=== PATIENT | female | born 1985 | race Caucasian/White ===

== ENCOUNTER → 2021-04-08 | Outpatient (CLI) | payer MEDICAID ==
[2018-11-16 14:53] VITALS: BP 126/84
[~2021-04-08] MED LIST: CITA10TA5 PO; FENT100D IV; HYDR4TAB PO; LORA0.5T PO; ONDA4TAB7 IVP; OXYC5CAP PO; PROC10VI20 IJ
--- NOTE | 2021-04-09 12:24 | KCIC ---
MRI of the cervical spine without contrast 04/08/2021 CLINICAL HISTORY: Chronic neck pain. TECHNIQUE: Unenhanced T1-weighted, T2-weighted and inversion recovery sagittal and gradient echo and T2-weighted axial images of the cervical spine were obtained. FINDINGS: Incomplete segmentation of the C2 and C3 vertebrae is seen. A hypoplastic disc is seen ante riorly at C2-3. Very mild lateral curvature of the cervical spine is seen convex to the left. There i s straightening of the normal cervical lordosis. Degenerative signal changes are seen involving all o f the disks of the cervical spine. The marrow signal of the visualized bony structures is within norm al limits. The cervical spinal cord is normal morphology, position, and signal characteristics. On the axial images throughout the cervical disc spaces, mild degenerative changes are seen consistin g of minimal to mild generalized disc bulges and mild degenerative changes involving the uncovertebra l and facet joints. These findings do not result in significant central spinal canal or neural forami nal stenosis at any level. No focal disc herniation is seen. IMPRESSION: Mild degenerative changes are seen involving the cervical spine as discussed above. These findings do not result in significant central spinal canal or neural foraminal stenosis. Electronically signed by: Franklin Echavarria MD (04/09/2021 12:22 PM) [id number]
--- NOTE | 2021-04-09 12:28 | KCIC ---
MRI of the lumbar spine without contrast 04/08/2021 CLINICAL HISTORY: Chronic low back pain. Left leg pain. TECHNIQUE: Unenhanced T1-weighted and T2-weighted sagittal and axial and inversion recovery sagittal images of the lumbar spine were obtained. FINDINGS: Sagittal and coronal reconstructed images demonstrate minimal S-shaped curvature of the tho racolumbar spine. Degenerative signal changes and loss of height are seen involving the L5-S1 disc. D egenerative signal changes are seen within the marrow surrounding this disc. The conus medullaris is within normal limits in morphology, position, and signal characteristics. The L1-2, L2-3 and L3-4 disc spaces are within normal limits. At the L4-5 disc space there is a minimal generalized disc bulge. Degenerative changes are seen invol ving the facet joints bilaterally. There is mild ligamentum flavum hypertrophy bilaterally. These fin dings do not result in significant central spinal canal or neural foraminal stenosis. At the L5-S1 disc space there is a mild generalized disc bulge. This is eccentric to the right. Super imposed on this disc bulge is a central/left paracentral focal disc protrusion. This measures 3 mm in AP diameter. Degenerative changes are seen involving the facet joints bilaterally. There is mild lig amentum flavum hypertrophy bilaterally. These findings do not result in significant central spinal ca nal stenosis. Mild right neural foraminal stenosis is seen. The left neural foramen is patent. IMPRESSION: The changes of degenerative disc disease are seen involving the lower lumbar spine. These findings do not result in significant central spinal canal stenosis at any level. Mild right neural foraminal stenosis is seen at L5-S1. Electronically signed by: Franklin Echavarria MD (04/09/2021 12:25 PM) [id number]
== END ==
LOC: KCIC MRI 14:52
PROVIDERS: ATTEND Family Medicine
DX: M47.817 Spondylosis without myelopathy or radiculopathy, lumbosacral region (principal); M47.812 Spondylosis without myelopathy or radiculopathy, cervical region; M51.37 Other intervertebral disc degeneration, lumbosacral region; M48.07 Spinal stenosis, lumbosacral region; M43.22 Fusion of spine, cervical region
CPT/HCPCS: 72141; 72148